=== PATIENT | female | born 1985 | race Caucasian/White ===

== ENCOUNTER → 2016-11-17 | Outpatient (CLI) | payer OTHER ==
[2015-12-26 06:20] VITALS: BP 111/60
--- NOTE | 2016-11-17 10:47 | RAD ---
Radionuclide gastric emptying study, 11/17/2016: History: Abdominal pain The study was performed utilizing a test meal radiolabeled with 2 mCi of technetium 99m sulfur colloid. The time to half emptying of the test meal from the patient's stomach was estimated at 191 minutes. A normal T1/2 is 60 minutes +/- 30 minutes. IMPRESSION: Moderately delayed gastric emptying
== END | disposition home or self-care (01) ==
LOC: NM 07:32
PROVIDERS: ATTEND Internal Medicine Gastroenterology
DX: R10.13 Epigastric pain (principal)
CPT/HCPCS: 78264; A9541

== ENCOUNTER 2016-11-27 15:14 | Emergency (ER) | payer OTHER ==
[~2016-11-27] VITALS: Ht 160 cm; Wt 87.2 kg
--- NOTE | 2016-11-27 16:04 | ED.ADGEN ---
Past History Past Medical History: Diabetes Past Surgical History: No Surgical History Alcohol Use: None Drug Use: None Adult General HPI HPI Patient is a 31-year-old female presents emergency department complaining of epigastric pain as well as nausea and vomiting. Patient is under the care of Dr. Wheeler. She had a recent scope and diagnosis of gastroparesis. It sounds like she is also being treated for H. pylori if she is taking erythromycin for a "infection." Today, she had some nausea and vomiting and called his office and she was instructed to come to the emergency department. None of her symptoms today are new for her. Review of Systems Review of Systems Constitutional: Denies fever or chills [] Eyes: Denies change in visual acuity, redness, or eye pain [] HENT: Denies nasal congestion or sore throat [] Respiratory: Denies cough or shortness of breath [] Cardiovascular: No additional information not addressed in HPI [] GI: Denies abdominal pain, nausea, vomiting, bloody stools or diarrhea [] : Denies dysuria or hematuria [] Musculoskeletal: Denies back pain or joint pain [] Integument: Denies rash or skin lesions [] Neurologic: Denies headache, focal weakness or sensory changes [] Endocrine: Denies polyuria or polydipsia [] Current Medications Current Medications Current Medications Medications (Trade) Dose Ordered Sig/[facility] Start Time Stop Time Status Last Admin Dose Admin Metoclopramide HCl (Reglan) 10 mg 1X ONCE 11/27/16 16:30 11/27/16 16:31 DC 11/27/16 16:22 10 MG Allergies Allergies Allergies Coded Allergies Type Severity Reaction Last Updated Verified No Known Drug Allergies 12/26/15 No Physical Exam Physical Exam Constitutional: Well developed, well nourished, no acute distress, non-toxic appearance. [] HENT: Normocephalic, atraumatic, bilateral external ears normal, oropharynx moist, no oral exudates, nose normal. [] Eyes: PERRLA, EOMI, conjunctiva normal, no discharge. [] Neck: Normal range of motion, no tenderness, supple, no stridor. [] Cardiovascular:Heart rate regular rhythm, no murmur [] Lungs & Thorax: Bilateral breath sounds clear to auscultation [] Abdomen: Bowel sounds normal, soft, epigastric tenderness to palpation without peritoneal signs., no masses, no pulsatile masses. [] Skin: Warm, dry, no erythema, no rash. [] Extremities: No tenderness, no cyanosis, no clubbing, ROM intact, no edema. [] Neurologic: Alert and oriented X 3, normal motor function, normal sensory function, no focal deficits noted. [] Psychologic: Affect normal, judgement normal, mood normal. [] Current Patient Data Vital Signs Vital Signs Date Time Temp Pulse Resp B/P Pulse Ox O2 Delivery O2 Flow Rate FiO2 11/27/16 15:20 98.7 88 18 98 Room Air EKG EKG [] Radiology/Procedures Radiology/Procedures [] Course & Med Decision Making Course & Med Decision Making Pertinent Labs and Imaging studies reviewed. (See chart for details) Given a dose of Reglan here as well as a prescription for the same. [] Final Impression Final Impression Gastroparesis [] Problems: Dragon Disclaimer Dragon Disclaimer This electronic medical record was generated, in whole or in part, using a voice recognition dictation system. STEPHANIE MACK MD Nov 27, 2016 16:04
[2016-11-27] MEDS ORDERED: METO10TA81 PO (16:15)
[2016-11-27] MEDS ORDERED: METOCLOPRAMIDE HCL 10 MG/2 ML VIAL. IM ONE (16:30)
[2016-11-27 17:00] VITALS: BP 124/69
== END 2016-11-27 17:00 | disposition home or self-care (01) ==
LOC: ER 15:14
DX: K31.84 Gastroparesis (principal); E11.9 Type 2 diabetes mellitus without complications
CPT/HCPCS: 96372; 99283; J2765

== ENCOUNTER 2016-12-28 10:50 | Emergency (ER) | payer OTHER ==
[~2016-12-28] VITALS: Ht 160 cm; Wt 101.6 kg
[~2016-12-28 10:50] MED LIST: METO10TA81 PO
--- NOTE | 2016-12-28 11:38 | RAD ---
Indication dizziness. Protocol study. A single view of the chest was obtained. No prior imaging of the chest is available. The heart and pulmonary vessels appear normal lungs appear clear. There is no pleural fluid or pneumothorax and the bony structures appear grossly intact. IMPRESSION: No acute or focal process is seen in the chest
[2016-12-28 11:41] LABS: BASO # 0.1 x10^3/uL (0.0-0.2); BASO % 1 % (0-3); EOS # 0.1 x10^3/uL (0.0-0.7); EOS % 2 % (0-3); HEMATOCRIT 44.3 % (36.0-47.0); LYMPH # 2.3 x10^3/uL (1.0-4.8); LYMPH % 33 % (24-48); MEAN CORPUSCULAR HEMOGLOBIN 31 pg (25-35); MEAN CORPUSCULAR HGB CONC 34 g/dL (31-37); MEAN CORPUSCULAR VOLUME 91 fL (79-100); MONO # 0.4 x10^3/uL (0.0-1.1); MONO % 6 % (0-9); NEUT % 58 % (31-73); PLATELET COUNT 269 x10^3/uL (140-400); RED BLOOD COUNT 4.87 x10^6/uL (3.50-5.40); RED CELL DISTRIBUTION WIDTH 12.9 % (11.5-14.5); WHITE BLOOD COUNT 6.9 x10^3/uL (4.0-11.0)
--- NOTE | 2016-12-28 11:43 | EKG ---
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
[2016-12-28 11:49] LABS: AMPHETAMINE/METHAMPHETAMINE NEG (NEG); BARBITURATES NEG (NEG); BENZODIAZEPINES NEG (NEG); CANNABINOIDS NEG (NEG); COCAINE NEG (NEG); METHADONE NEG (NEG); OPIATES NEG (NEG); PHENCYCLIDINE NEG (NEG)
[2016-12-28 11:52] LABS: BACTERIA,URINE FEW /HPF (0-FEW); BILIRUBIN,URINE NEG (NEG); CLARITY,URINE CLEAR; COLOR,URINE YELLOW; GLUCOSE,URINE NEG (NEG); NITRITE,URINE NEG (NEG); SQUAMOUS EPITHELIAL CELL,UR FEW /LPF; UROBILINOGEN,URINE 0.2 mg/dL (0.2 mg/dL)
[2016-12-28 11:54] LABS: ALBUMIN 3.9 g/dL (3.4-5.0); CALCIUM 9.2 mg/dL (8.5-10.1); CREATININE 0.8 mg/dL (0.6-1.0); DIRECT BILIRUBIN 0.1 mg/dL (0.0-0.2); GFR 83.7; MAGNESIUM 2.1 mg/dL (1.8-2.4); POTASSIUM 4.4 mmol/L (3.5-5.1); TOTAL BILIRUBIN 0.3 mg/dL (0.2-1.0); TOTAL PROTEIN 7.9 g/dL (6.4-8.2)
--- NOTE | 2016-12-28 12:17 | ED.ADGEN ---
Past History Past Medical History: Diabetes, Other Past Surgical History: No Surgical History Alcohol Use: None Drug Use: None Adult General Chief Complaint Chief Complaint Dizziness HPI HPI Patient is a 31-year-old year old female who presents with fifth dizzy and feeling like she is going to pass out at times. She states she hasn't but she sometimes sees spots such she might. She states the symptoms started last night. She denies any vertigo type symptoms. She feels like intermittently she feels like she'll pass out she started seeing some spots and they resolve. She has not passed out. She denies any chest pain, shortness of breath, nausea vomiting diarrhea fevers or chills. She states that she feels very foggy with her mind, she denies any focal neurological changes or weaknesses. She states she feels "like I am stoned". Review of Systems Review of Systems Constitutional: Denies fever or chills [] Eyes: Denies change in visual acuity, redness, or eye pain [] HENT: Denies nasal congestion or sore throat [] Respiratory: Denies cough or shortness of breath [] Cardiovascular: No additional information not addressed in HPI [] GI: Denies abdominal pain, nausea, vomiting, bloody stools or diarrhea [] : Denies dysuria or hematuria [] Musculoskeletal: Denies back pain or joint pain [] Integument: Denies rash or skin lesions [] Neurologic: Denies headache, focal weakness or sensory changes [] Endocrine: Denies polyuria or polydipsia [] Current Medications Current Medications Current Medications Medications (Trade) Dose Ordered Sig/[facility] Start Time Stop Time Status Last Admin Dose Admin Acetaminophen (Tylenol) 1,000 mg 1X ONCE 12/28/16 14:10 12/28/16 14:11 DC 12/28/16 14:10 1,000 MG Sodium Chloride (Iv Sodium Chloride 0.9% 1,000ml) 1,000 ml @ 1,000 mls/hr 1X ONCE 12/28/16 12:30 12/28/16 13:29 DC 12/28/16 12:30 1,000 MLS/HR Allergies Allergies Allergies Coded Allergies Type Severity Reaction Last Updated Verified No Known Drug Allergies 12/26/15 No Physical Exam Physical Exam Constitutional: Well developed, well nourished, no acute distress, non-toxic appearance. [] HENT: Normocephalic, atraumatic, bilateral external ears normal, oropharynx moist, no oral exudates, nose normal. [] Eyes: PERRLA, EOMI, conjunctiva normal, no discharge. [] Neck: Normal range of motion, no tenderness, supple, no stridor. [] Cardiovascular:Heart rate regular rhythm, no murmur [] Lungs & Thorax: Bilateral breath sounds clear to auscultation [] Abdomen: Bowel sounds normal, soft, no tenderness, no masses, no pulsatile masses. [] Skin: Warm, dry, no erythema, no rash. [] Back: No tenderness, no CVA tenderness. [] Extremities: No tenderness, no cyanosis, no clubbing, ROM intact, no edema. [] Neurologic: Alert and oriented X 3, normal motor function, normal sensory function, no focal deficits noted. [] Psychologic: Affect normal, judgement normal, mood normal. [] Current Patient Data Vital Signs Vital Signs Date Time Temp Pulse Resp B/P Pulse Ox O2 Delivery O2 Flow Rate FiO2 12/28/16 14:45 79 20 122/74 99 Room Air 12/28/16 10:50 98.3 Lab Results Laboratory Tests Test 12/28/16 11:20 12/28/16 11:25 12/28/16 11:31 12/28/16 14:15 Urine Collection Type Unknown Urine Color Yellow Urine Clarity Clear Urine pH 6.5 Urine Specific [place] 1.015 Urine Protein Neg (NEG-TRACE) Urine Glucose (UA) Negmg/dL (NEG) Urine Ketones (Stick) Negmg/dL (NEG) Urine Blood Neg (NEG) Urine Nitrite Neg (NEG) Urine Bilirubin Neg (NEG) Urine Urobilinogen Dipstick 0.2mg/dL (0.2 mg/dL) Urine Leukocyte Esterase Neg (NEG) Urine RBC 1-2/HPF (0-2) Urine WBC 1-4/HPF (0-4) Urine Squamous Epithelial Cells Few/LPF Urine Bacteria Few/HPF (0-FEW) Urine Mucus Mod/LPF Urine Opiates Screen Neg (NEG) Urine Methadone Screen Neg (NEG) Urine Barbiturates Neg (NEG) Urine Phencyclidine Screen Neg (NEG) Urine Amphetamine/Methamphetamine Neg (NEG) Urine Benzodiazepines Screen Neg (NEG) Urine Cocaine Screen Neg (NEG) Urine Cannabinoids Screen Neg (NEG) Urine Ethyl Alcohol Neg (NEG) White Blood Count 6.9x10^3/uL (4.0-11.0) Red Blood Count 4.87x10^6/uL (3.50-5.40) Hemoglobin 15.0g/dL (12.0-15.5) Hematocrit 44.3% (36.0-47.0) Mean Corpuscular Volume 91fL (79-100) Mean Corpuscular Hemoglobin 31pg (25-35) Mean Corpuscular Hemoglobin Concent 34g/dL (31-37) Red Cell Distribution Width 12.9% (11.5-14.5) Platelet Count 269x10^3/uL (140-400) Neutrophils (%) (Auto) 58% (31-73) Lymphocytes (%) (Auto) 33% (24-48) Monocytes (%) (Auto) 6% (0-9) Eosinophils (%) (Auto) 2% (0-3) Basophils (%) (Auto) 1% (0-3) Neutrophils # (Auto) 4.0x10^3uL (1.8-7.7) Lymphocytes # (Auto) 2.3x10^3/uL (1.0-4.8) Monocytes # (Auto) 0.4x10^3/uL (0.0-1.1) Eosinophils # (Auto) 0.1x10^3/uL (0.0-0.7) Basophils # (Auto) 0.1x10^3/uL (0.0-0.2) Prothrombin Time 9.6SEC (9.4-11.4) Prothrombin Time INR 0.9 (0.9-1.1) PTT 26SEC (23-33) Sodium Level 141mmol/L (136-145) Potassium Level 4.4mmol/L (3.5-5.1) Chloride Level 102mmol/L (98-107) Carbon Dioxide Level 30mmol/L (21-32) Anion Gap 9 (6-14) Blood Urea Nitrogen 10mg/dL (7-20) Creatinine 0.8mg/dL (0.6-1.0) Estimated GFR (Cockcroft-Gault) 83.7 Glucose Level 104mg/dL (70-99) H Calcium Level 9.2mg/dL (8.5-10.1) Magnesium Level 2.1mg/dL (1.8-2.4) Total Bilirubin 0.3mg/dL (0.2-1.0) Direct Bilirubin 0.1mg/dL (0.0-0.2) Aspartate Amino Transferase (AST) 12U/L (15-37) L Alanine Aminotransferase (ALT) 21U/L (14-59) Alkaline Phosphatase 73U/L (46-116) Creatine Kinase 79U/L (26-192) 62U/L (26-192) Troponin I Quantitative < 0.017ng/mL (0-0.055) < 0.017ng/mL (0-0.055) Total Protein 7.9g/dL (6.4-8.2) Albumin 3.9g/dL (3.4-5.0) Lipase 86U/L (73-393) Thyroid Stimulating Hormone (TSH) 2.052uIU/mL (0.358-3.740) POC Urine HCG, Qualitative hcg negative (Negative) Creatine Kinase MB (Mass) 0.5ng/mL (0.0-3.6) Creatine Kinase MB Relative Index 0.8% (0-4) EKG EKG EKG shows normal sinus rhythm with a rate of [address] elevations or T-wave inversions noted in leads 3, aVF, QTC 395 ms, as interpreted by me. Radiology/Procedures Radiology/[place] [address] IMAGING REPORT Signed PATIENT: ALVIN DO ACCOUNT: [id number] : 1985 LOCATION: ER AGE: 31 SEX: F EXAM STATUS: REG ER ORD. PHYSICIAN: ROXY ABREU MD REASON: DIZZY PROCEDURE: PORTABLE CHEST 1V Indication dizziness. Protocol study. A single view of the chest was obtained. No prior imaging of the chest is available. The heart and pulmonary vessels appear normal lungs appear clear. There is no pleural fluid or pneumothorax and the bony structures appear grossly intact. IMPRESSION: No acute or focal process is seen in the chest DICTATED AND SIGNED BY: PRASANTH GUEVARA MD DATE: 12/28/16 1134 CC: HORTENCIA BURNETTE MD; ROXY ABREU MD ~ Course & Med Decision Making Course & Med Decision Making Pertinent Labs and Imaging studies reviewed. (See chart for details) Labs, chest x-ray nonacute. Patient was able to ambulate without any difficulties. Her neuro exam is completely intact. She was given a liter fluids and being discharged home. He does have T-wave inversions in her EKG I did repeat a troponin 2 which are both negative. She has a follow-up appointment tomorrow with her primary care physician. She is instructed to start taking multivitamins and follow-up with her primary care physician. Return precautions given focal neurological deficit, fevers, confusion or other concerns. Final Impression Final Impression Dizziness Problems: Dragon Disclaimer Dragon Disclaimer This electronic medical record was generated, in whole or in part, using a voice recognition dictation system. ROXY ABREU MD December 28, 2016 12:17
[2016-12-28] MEDS ORDERED: IV NORMAL SALINE 1,000ML 1,000 ML IV ONE (12:30)
[2016-12-28] MEDS ORDERED: ACETAMINOPHEN 500 MG TABLET PO ONE (14:10)
[2016-12-28 14:45] VITALS: BP 122/74
== END 2016-12-28 15:10 | disposition home or self-care (01) ==
LOC: ER 10:50
DX: R42 Dizziness and giddiness (principal); E11.9 Type 2 diabetes mellitus without complications
CPT/HCPCS: 36415; 71010; 80048; 80076; 80305; 81001; 81025; 82550; 82553; 83690; 83735; 84443; 84484; 84703; 85027; 85610; 85730; 93005; 96360; 96361; G0481; 99285-25; J7030

== ENCOUNTER 2017-03-11 19:58 | Emergency (ER) | payer OTHER ==
[~2017-03-11] VITALS: Ht 160 cm; Wt 102.2 kg
--- NOTE | 2017-03-11 20:05 | PHYS DOC ---
General Chief Complaint: ANKLE PROBLEM Stated Complaint: RT ANKLE INJURY Time Seen by MD: 20:04 Source: patient Exam Limitations: no limitations Problems: History of Present Illness Initial Comments Patient is a 31-year-old female who comes to the ED complaining of right ankle pain. Patient states earlier today she was stepping off a curb and rolled her right ankle in an inversion mechanism. She denies falling or other injury but does complain of severe lateral right ankle pain and swelling. She says she did feel a pop, pain described as sharp and throbbing and severe with movement mild to moderate at rest. No pre-arrival treatment numbness tingling weakness or radiating symptoms. Patient has a prior fracture to this ankle. Onset: this evening Severity: moderate Pain/Injury Location: right ankle Method of Injury: twisted Modifying Factors: worse with jarring, worse with movement, improves with rest Allergies: Coded Allergies: No Known Drug Allergies (Unverified , 12/26/15) Past Medical History Medical History: other (GERD) Surgical History: appendectomy Social History Smoker: non-smoker Alcohol: none Drugs: none Review of Systems Constitutional: denies chills, denies fever Respiratory: denies cough, denies shortness of breath Cardiovascular: denies chest pain, denies palpitations Gastrointestinal: denies diarrhea (course in the brace), denies nausea, denies vomiting Genitourinary: denies dysuria, denies frequency, denies hematuria Musculoskeletal: see HPI ( no) Psychiatric/Neurological: see HPI Physical Exam General Appearance: mild distress, obese Neck: full range of motion, supple Cardiovascular/Respiratory: normal peripheral pulses, no respiratory distress Back: no CVA tenderness, no vertebral tenderness Ankles: left ankle non-tender, left ankle normal inspection, left ankle normal range of motion, left ankle no evidence of injury, right ankle limited range of motion, right ankle other (moderate right ankle effusion with concentration and tenderness at the anterior talofibular ligament and posterior calcaneofibular ligaments, drawer test is negative there is no tenderness at the proximal fifth metatarsal or the proximal fibula, there is no palpable deformity ligaments and tendons appear to be intact.) Feet: bilateral foot non-tender, bilateral foot normal inspection, bilateral foot normal range of motion, bilateral foot no evidence of injury Neurologic/Tendon: normal sensation, normal motor functions, normal tendon functions, responds to pain, no evidence tendon injury Psychiatric: alert, oriented x 3 Skin: normal color, warm/dry Orders, Labs, Meds Right ankle: No acute osseous abnormality. Interpreted by Dr. Cortez. Neurovascularly intact after air splint placed. Departure Time of Disposition: 20:42 Disposition: 01 HOME, SELF-CARE Diagnosis: right ankle sprain, abrasion Condition: GOOD Patient Instructions: Crutch Use, [id number], RICE - Routine Care for Injuries, [id number] Additional Instructions: Keep abrasions clean and dry. Wear the velcro ankle splint as needed. RICE, see handout. Use crutches as needed. OTC ibuprofen for baseline discomfort. A tylenol #3 start pack was sent home with you. Take 1-2 every 6 hours for severe pain. Rx: norco 5mg #10 Follow up with your doctor Wednesday for recheck. Return to ED with new or changing symptoms. SOPHIE CORTEZ DO Mar 11, 2017 20:05
[2017-03-11 20:09] VITALS: BP 116/59
[2017-03-11] MEDS ORDERED: ACETAMINOPHEN/CODEINE 300/30MG 4TABLET STARTPACK. PO ONE (21:00)
[2017-03-11] MEDS ORDERED: HYDROcodone/APAP 7.5/325MG 1 TAB TABLET PO ONE (21:00)
--- NOTE | 2017-03-12 09:02 | RAD ---
Right ankle, 3 views, 03/11/2017: History: Ankle pain, injury No fracture or dislocation is identified. There is moderate diffuse soft tissue swelling about the ankle. IMPRESSION: No acute bony abnormality is detected.
== END 2017-03-11 21:20 | disposition home or self-care (01) ==
LOC: ER 19:58
DX: S93.401A Sprain of unspecified ligament of right ankle, initial encounter (principal); K21.9 Gastro-esophageal reflux disease without esophagitis; X50.9XXA Other and unspecified overexertion or strenuous movements or postures, initial encounter; Y93.89 Activity, other specified; Y99.8 Other external cause status; Y92.89 Other specified places as the place of occurrence of the external cause
CPT/HCPCS: 29125; 29515; 73610; 99284-25

== ENCOUNTER 2017-03-22 13:43 | Emergency (ER) | payer OTHER ==
[2017-03-22] MEDS ORDERED: IV NORMAL SALINE 1,000ML 1,000 ML IV SCH (14:24)
[2017-03-22 14:45] LABS: BASO # 0.1 x10^3/uL (0.0-0.2); BASO % 1 % (0-3); EOS # 0.2 x10^3/uL (0.0-0.7); EOS % 2 % (0-3); HEMATOCRIT 40.8 % (36.0-47.0); HEMOGLOBIN 14.5 g/dL (12.0-15.5); LYMPH # 2.8 x10^3/uL (1.0-4.8); LYMPH % 32 % (24-48); MEAN CORPUSCULAR HEMOGLOBIN 32 pg (25-35); MEAN CORPUSCULAR HGB CONC 36 g/dL (31-37); MEAN CORPUSCULAR VOLUME 89 fL (79-100); MONO # 0.6 x10^3/uL (0.0-1.1); MONO % 7 % (0-9); NEUT # 5.1 x10^3uL (1.8-7.7); NEUT % 58 % (31-73); PLATELET COUNT 283 x10^3/uL (140-400); RED BLOOD COUNT 4.58 x10^6/uL (3.50-5.40); WHITE BLOOD COUNT 8.8 x10^3/uL (4.0-11.0)
--- NOTE | 2017-03-22 14:45 | PHYS DOC ---
General Chief Complaint: HEADACHE Stated Complaint: DIZZY/HEADACHE Time Seen by MD: 14:24 Source: patient Exam Limitations: no limitations Problems: History of Present Illness Initial Comments Patient is a 31-year-old female who comes to the ED complaining of migraine headache. Patient states that she takes Imitrex as needed for headaches, her headache started yesterday and Imitrex did not help. Today her headache is worse and she' s got some dizziness her symptoms are only present when she is sitting upright standing or walking symptoms do resolve quickly when she lays flat. Headache is described as global, throbbing/pounding resolved at rest while lying down worse with upright posture and activity. No head trauma no focal neurologic deficits. Symptoms are different than her usual migraine as they are global and one dose of Imitrex usually resolves her headache quickly. No rash neck stiffness fever. Timing/Duration: 24 hours Severity: moderate Modifying Factors: worse with movement, improves with rest Associated Symptoms: headaches, other Allergies: Coded Allergies: No Known Drug Allergies (Unverified , 12/26/15) Past Medical History Medical History: other (migraines, gastroparesis) Surgical History: appendectomy Social History Smoker: non-smoker Alcohol: none Drugs: none Review of Systems Constitutional: denies chills, denies diaphoresis, denies fever, denies malaise EENTM: denies eye pain, denies blurred vision, denies ear pain, denies nose pain, denies throat pain Respiratory: denies cough, denies shortness of breath, denies wheezing Cardiovascular: denies chest pain (sore), denies palpitations, denies syncope Gastrointestinal: denies abdominal pain, denies diarrhea, denies nausea, denies vomiting (status.Not nontypical to the urgent this afternoon) Genitourinary: denies discharge, denies frequency, denies hematuria Musculoskeletal: denies back pain, denies joint swelling, denies neck pain Skin: denies dryness, denies rash Psychiatric/Neurological: see HPI, headache, denies numbness, denies paresthesia, denies pre-existing deficit, denies weakness Hematologic/Lymphatic: denies blood clots, denies easy bleeding, denies easy bruising Physical Exam General Appearance: WD/WN, no apparent distress Eyes: bilateral eye normal inspection, bilateral eye PERRL, bilateral eye EOMI Ear, Nose, Throat: hearing grossly normal, normal ENT inspection (dry mucous membranes), normal pharynx Neck: non-tender, supple Respiratory: normal breath sounds, no respiratory distress Cardiovascular: normal peripheral pulses, regular rate, rhythm Gastrointestinal: non tender, soft Back: no CVA tenderness, no vertebral tenderness Extremities: non-tender, normal inspection 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 She is more comfortable now she sitting up with her eyes open. She states her symptoms have resolved completely with IV fluids and is ready for discharge. Urine has not been collected and sent yet and I will DC that order. Her CBC and chemistry values were within normal limits. She'll be discharged home with instructions to hydrate orally. Departure Time of Disposition: 15:16 Disposition: 01 HOME, SELF-CARE Diagnosis: hypovolemia, headache Condition: IMPROVED Patient Instructions: Dehydration, Adult, [id number] Additional Instructions: Rest, no strenuous activity. Aggressive hydration with Gatorade and water. Follow-up with your doctor for recheck next week. Return to the ED with new or changing symptoms. SOPHIE MCLAUGHLIN DO Mar 22, 2017 14:45
[2017-03-22 14:52] LABS: CREATININE 0.9 mg/dL (0.6-1.0); POTASSIUM 3.9 mmol/L (3.5-5.1)
[2017-03-22] MEDS ORDERED: KETOROLAC 30 MG/ML VIAL. IV ONE (15:00)
[2017-03-22] MEDS ORDERED: ONDANSETRON PF 4 MG/2 ML VIAL. IV ONE (15:00)
[2017-03-22 15:07] VITALS: BP 140/77
== END 2017-03-22 15:30 | disposition home or self-care (01) ==
LOC: ER 13:43
DX: R51 Headache (principal); E86.1 Hypovolemia; G43.909 Migraine, unspecified, not intractable, without status migrainosus
CPT/HCPCS: 36415; 80048; 85027; 96361; 96374; 96375; 99284; J1885; J2405; J7030

== ENCOUNTER → 2017-04-14 | Outpatient (CLI) | payer OTHER ==
[2017-03-22 15:07] VITALS: BP 140/77
--- NOTE | 2017-04-14 11:39 | RAD ---
CT abdomen/pelvis without contrast 04/14/2017 1122 hours Indication: Left upper quadrant abdominal pain Comparison: CT abdomen/pelvis 12/26/2015 Technique: Multiple axial CT images of the abdomen and pelvis were obtained without intravenous contrast. Coronal and sagittal reformats are provided. Findings: The lung bases are clear. Heart size is within normal limits. Mild diffuse hypoattenuation of the hepatic parenchyma suggestive of hepatic steatosis. Spleen, bilateral adrenal glands, and pancreas are within normal limits. Gallbladder is present without adjacent inflammatory changes. Kidneys appear symmetric in size. No renal calculi. No hydronephrosis. No contour deforming renal mass. No calculi are identified along the course of the ureters and urinary bladder. The abdominal aorta is normal in course and caliber. There are no enlarged lymph nodes within the abdomen or pelvis. There is no free intraperitoneal air. There is no free fluid within the abdomen or pelvis. There are no dilated loops of small or large bowel. The appendix is not visualized. No evidence for bowel obstruction. Bladder is within normal limits. No suspicious adnexal masses are identified. Uterus is within normal limits by CT. No suspicious osseous lesions are identified. Impression: No acute process is identified within the abdomen or pelvis. Specifically, no renal calculi or calculi along the ureters and urinary bladder. No hydronephrosis. PQRS Compliance Statement: One or more of the following individualized dose reduction techniques were utilized for this examination: 1. Automated exposure control 2. Adjustment of the mA and/or kV according to patient size 3. Use of iterative reconstruction technique
== END | disposition home or self-care (01) ==
LOC: CT 11:18
PROVIDERS: ATTEND Family Medicine
DX: K31.84 Gastroparesis (principal); R63.5 Abnormal weight gain; R20.2 Paresthesia of skin
CPT/HCPCS: 74176

== ENCOUNTER 2017-06-12 04:23 | Emergency (ER) | payer OTHER ==
[~2017-06-12] VITALS: Ht 160 cm; Wt 104.3 kg
[2017-06-12 04:38] VITALS: BP 142/84
[2017-06-12] MEDS ORDERED: KETOROLAC 60 MG/2 ML VIAL. IM ONE (04:45)
[2017-06-12] MEDS ORDERED: HYDR-2758 PO (04:49)
[2017-06-12] MEDS ORDERED: NAPR275T59 PO (04:49)
--- NOTE | 2017-06-12 04:49 | PHYS DOC ---
Past History Past Medical History: Anxiety, Depression, Migraines, Other Past Surgical History: Appendectomy Alcohol Use: None Drug Use: None Adult General Chief Complaint Chief Complaint: UPPER EXTREMITY PAIN HPI HPI Patient is a pleasant 32-year-old female who was recently diagnosed with fibromyalgia by her primary care doctor and started on gabapentin within the last 4 weeks. 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 She describes some paresthesias over the entire distal arm. She describes no weakness. The pain is described as throbbing and aching with some radiation to the shoulders. It is exacerbated by activities. Quickly wakes her up at night. There is no shoulder pain or no neck pain. She denies any trauma to her upper extremity's or neck. She is tried Tylenol with limited limited success Review of Systems Review of Systems Constitutional: Denies fever or chills [] Eyes: Denies change in visual acuity, redness, or eye pain [] HENT: Denies nasal congestion or sore throat [] Respiratory: Denies cough or shortness of breath [] Cardiovascular: No additional information not addressed in HPI [] GI: Denies abdominal pain, nausea, vomiting, bloody stools or diarrhea [] : Denies dysuria or hematuria [] Musculoskeletal: Her main complaint is upper arm extremity pain bilaterally and paresthesias Integument: Denies rash or skin lesions [] Neurologic: Denies headache, focal weakness she does describe some sensation changes in her upper arms and hands bilaterally[] Endocrine: Denies polyuria or polydipsia [] Allergies Allergies Allergies Coded Allergies Type Severity Reaction Last Updated Verified No Known Drug Allergies 12/26/15 No Physical Exam Physical Exam Vital signs recorded on the chart patient noted to be mildly hypertensive. Constitutional: Well developed, well nourished, no acute distress, non-toxic appearance. [] HENT: Normocephalic, atraumatic, bilateral external ears normal, oropharynx moist, no oral exudates, nose normal. [] Eyes: PERRLA, EOMI, conjunctiva normal, no discharge. [] Neck: Normal range of motion, no tenderness, supple, no stridor. Negative Spurling test no midline tenderness palpation.[] Cardiovascular:Heart rate regular rhythm, no murmur [] Lungs & Thorax: Bilateral breath sounds clear to auscultation [] Abdomen: Bowel sounds normal, soft, no tenderness, no masses, no pulsatile masses. [] Skin: Warm, dry, no erythema, no rash. [] Back: No tenderness, no CVA tenderness. [] Extremities: Patient's tenderness to palpation over the carpal tunnel areas on each wrist. She has a positive Tinel sign positive positive Phalen's maneuver Neurologic: Alert and oriented X 3, normal motor function, normal sensory function, patient has slight sensory decreased in the hands bilaterally.. [] Psychologic: Affect normal, judgement normal, mood normal. [] Current Patient Data Vital Signs Vital Signs Date Time Temp Pulse Resp B/P (MAP) Pulse Ox O2 Delivery O2 Flow Rate FiO2 06/12/17 04:38 97.8 83 20 142/84 (103) 95 Room Air EKG EKG [] Radiology/Procedures Radiology/Procedures [] Course & Med Decision Making Course & Med Decision Making Pertinent Labs and Imaging studies reviewed. 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 She has positive Tinel's, positive Phalen's sign on examination. With pain. Paresthesias and no evidence of weakness and disposition of the median ulnar and radial nerves of the arms bilaterally. Patient has negative Spurling's test evidence of cervical radiculopathy. I advised the patient to take pain medications used bilateral wrist splints and follow-up with a neurologist locally for physician for nerve conduction studies. [] Dragon Disclaimer Dragon Disclaimer This chart was dictated in whole or in part using Voice Recognition software in a busy, high-work load, and often noisy Emergency Department environment. It may contain unintended and wholly unrecognized errors or omissions. Departure Departure: Impression: Primary Impression: Paresthesias Additional Impression: Carpal tunnel syndrome on both sides Disposition: 01 HOME, SELF-CARE Condition: STABLE Referrals: HORTENCIA BURNETTE MD (PCP) KELSI PALOMARES MD Patient Instructions: Carpal Tunnel Syndrome Additional Instructions: My discharge plan Follow up: In addition patient is asked to followup with their primary doctor, within a week for followup examination and to address patient's ongoing medical conditions. Patient is advised that in the Emergency Department primary complaints are addressed and only in light of known signs and symptoms. Patient should return immediately to the emergency department if new signs and symptoms develop or patient's condition worsens in any way. At time of discharge patient was in stable condition and had verbalized understanding of the discharge instructions. I would advise that you follow-up with a neurologist for continued. Evaluation of your CTS syndrome which will likely require nerve conduction studies and possibly referral to orthopedics. Scripts Hydrocodone Bit/Acetaminophen (HYDROCODONE-APAP 5-325 ) 1 Each Tablet 1 TAB PO PRN Q6HRS Y for PAIN for 5 Days, #12 TAB 0 Refills Prov: TULIO ASENCIO MD 06/12/17 Naproxen Sodium (NAPROXEN SODIUM) 275 Mg Tablet 275 MG PO BID for 7 Days, #14 TAB Prov: TULIO ASENCIO MD 06/12/17 Problem Qualifiers TULIO ASENCIO MD Jun 12, 2017 04:49
[2017-06-12] MEDS ORDERED: HYDROcodone/APAP 5/325MG 1 TAB TABLET PO ONE (05:00)
== END 2017-06-12 05:00 | disposition home or self-care (01) ==
LOC: ER 04:23
DX: R20.2 Paresthesia of skin (principal); G56.03 Carpal tunnel syndrome, bilateral upper limbs; G43.909 Migraine, unspecified, not intractable, without status migrainosus
CPT/HCPCS: 29125; 96372; 99283; J1885

== ENCOUNTER 2017-12-11 20:51 | Emergency (ER) | payer SELFPAY ==
[~2017-12-11] VITALS: Ht 160 cm; Wt 95.3 kg
[~2017-12-11 20:51] MED LIST changes: +HYDR-2758 PO; +NAPR275T59 PO
--- NOTE | 2017-12-11 20:54 | ED.ADGEN ---
Past History Past Medical History: Anxiety, Depression, Migraines, Other Past Surgical History: Appendectomy Alcohol Use: None Drug Use: None Adult General Chief Complaint Chief Complaint " I having one the worse headaches...".. " I get migraines.. this one been for last two days.. just not better today... " HPI HPI Patient is a 32 year old female who presents with above hx and complaints exacerbation of her migraine headache. Pt. has nausea, photophobia, and frontal scalp tenderness. No hx of travel, trauma or specific ill contacts. No hx of fever . No hx of IV drug use. No hx of immunosuppression. Pt. follows with Dr. Rendon. Hx of nausea. Review of Systems Review of Systems Constitutional: Denies fever or chills [] Eyes: Denies change in visual acuity, redness, or eye pain [] HENT: Denies nasal congestion or sore throat [] Respiratory: Denies cough or shortness of breath [] Cardiovascular: No additional information not addressed in HPI [] GI: Denies abdominal pain, vomiting, bloody stools or diarrhea []Complaints nausea. : Denies dysuria or hematuria [] Musculoskeletal: Denies back pain or joint pain [] Integument: Denies rash or skin lesions [] Neurologic: Complaints of migraine headache, focal weakness or sensory changes [] Endocrine: Denies polyuria or polydipsia [] All other systems were reviewed and found to be within normal limits, except as documented in this note. Family History Family History Non-contributory Current Medications Current Medications Current Medications Medications (Trade) Dose Ordered Sig/Magnolia Start Time Stop Time Status Last Admin Dose Admin Diphenhydramine HCl (Benadryl) 50 mg 1X ONCE 12/11/17 22:00 12/11/17 22:01 DC 12/11/17 21:48 50 MG Ketorolac Tromethamine (Toradol) 30 mg 1X ONCE 12/11/17 23:00 12/11/17 23:01 DC 12/11/17 22:52 30 MG Lactated Ringer's 1,000 ml @ 1,000 mls/hr 1X ONCE 12/11/17 22:00 12/11/17 23:00 DC 12/11/17 21:52 1,000 MLS/HR Oxycodone/ Acetaminophen (Percocet 5/325) 2 tab 1X ONCE 12/11/17 23:30 12/11/17 23:31 DC 12/11/17 23:36 2 TAB Promethazine HCl (Phenergan Im) 25 mg 1X ONCE 12/11/17 22:00 12/11/17 22:01 DC 12/11/17 21:53 25 MG Sodium Chloride 50 ml @ As Directed STK-MED ONCE 12/11/17 21:36 12/11/17 21:37 DC Sumatriptan Succinate (Imitrex) 6 mg 1X ONCE 12/11/17 22:00 12/11/17 22:01 DC 12/11/17 21:53 6 MG Valproic Acid (Depacon) 500 mg STK-MED ONCE 12/11/17 21:37 12/11/17 21:38 DC Valproic Acid 500 mg/Sodium Chloride 55 ml @ 55 mls/hr 1X ONCE 12/11/17 22:00 12/11/17 23:00 DC 12/11/17 21:48 55 MLS/HR Allergies Allergies Allergies Coded Allergies Type Severity Reaction Last Updated Verified No Known Drug Allergies 12/26/15 No Physical Exam Physical Exam Constitutional: moderated distress, non-toxic appearance. [] HENT: Normocephalic, atraumatic, bilateral external ears normal, oropharynx moist, no oral exudates, nose normal. No temporal art. tenderness. Frontal scalp tenderness. Eyes: PERRLA, EOMI, conjunctiva normal, no discharge. [] Neck: Normal range of motion, no tenderness, supple, no stridor. [] Cardiovascular:Heart rate regular rhythm, no murmur [] Lungs & Thorax: Bilateral breath sounds clear to auscultation [] Abdomen: Bowel sounds normal, soft, no tenderness, no masses, no pulsatile masses. [] Obese. Old scar. Skin: Warm, dry, no erythema, no rash. [] Back: No tenderness, no CVA tenderness. [] Extremities: No tenderness, no cyanosis, no clubbing, ROM intact, no edema. [] Neurologic: Alert and oriented X 3, No gross motor function deficits, No gross sensory deficits, no gross focal deficits noted. []DTR + 2 patella and brachial Rt hand dominate. Psychologic: Affect anxious, judgement normal, mood normal. [] Current Patient Data Vital Signs Vital Signs Date Time Temp Pulse Resp B/P (MAP) Pulse Ox O2 Delivery O2 Flow Rate FiO2 12/11/17 23:30 98.1 84 20 131/80 (97) 95 Room Air Lab Results Laboratory Tests Test 12/11/17 21:21 White Blood Count 12.7 x10^3/uL (4.0-11.0) H Red Blood Count 4.94 x10^6/uL (3.50-5.40) Hemoglobin 15.3 g/dL (12.0-15.5) Hematocrit 44.1 % (36.0-47.0) Mean Corpuscular Volume 89 fL (79-100) Mean Corpuscular Hemoglobin 31 pg (25-35) Mean Corpuscular Hemoglobin Concent 35 g/dL (31-37) Red Cell Distribution Width 13.3 % (11.5-14.5) Platelet Count 293 x10^3/uL (140-400) Neutrophils (%) (Auto) 81 % (31-73) H Lymphocytes (%) (Auto) 14 % (24-48) L Monocytes (%) (Auto) 4 % (0-9) Eosinophils (%) (Auto) 1 % (0-3) Basophils (%) (Auto) 0 % (0-3) Neutrophils # (Auto) 10.2 x10^3uL (1.8-7.7) H Lymphocytes # (Auto) 1.8 x10^3/uL (1.0-4.8) Monocytes # (Auto) 0.5 x10^3/uL (0.0-1.1) Eosinophils # (Auto) 0.1 x10^3/uL (0.0-0.7) Basophils # (Auto) 0.0 x10^3/uL (0.0-0.2) Erythrocyte Sedimentation Rate 40 (0-25) H Prothrombin Time 9.9 SEC (9.4-11.4) Prothrombin Time INR 1.0 (0.9-1.1) PTT 27 SEC (23-33) Sodium Level 140 mmol/L (136-145) Potassium Level 4.0 mmol/L (3.5-5.1) Chloride Level 102 mmol/L (98-107) Carbon Dioxide Level 28 mmol/L (21-32) Anion Gap 10 (6-14) Blood Urea Nitrogen 15 mg/dL (7-20) Creatinine 0.8 mg/dL (0.6-1.0) Estimated GFR (Cockcroft-Gault) 83.1 Glucose Level 98 mg/dL (70-99) Calcium Level 9.4 mg/dL (8.5-10.1) Magnesium Level 2.0 mg/dL (1.8-2.4) EKG EKG [] Radiology/Procedures Radiology/Procedures My interpretation of CT of head shows[]no shift,edema, mass, bleed or fx. Course & Med Decision Making Course & Med Decision Making Pertinent Labs and Imaging studies reviewed. (See chart for details) Pt. declines spinal tap at this time. Exhibit UCAR capacity. Pt. to take Imitrex 100mg. No more than 200 mg in 24 hrs. Zofran for nausea and vomiting. Must follow up with primary and neurology. At discharge pt pain free. Ambulatory with out problems. Pt. to return if any concerns. [] Final Impression Final Impression 1. Migraine[] 2. Elevation Sed. Rate 3. Leukocytosis 4. Viral Syndrome Problems: Dragon Disclaimer Dragon Disclaimer This electronic medical record was generated, in whole or in part, using a voice recognition dictation system. JONAH HARDY MD Dec 11, 2017 20:54
[2017-12-11] MEDS ORDERED: IV NORMAL SALINE 50ML 50 ML ONE (21:36)
[2017-12-11] MEDS ORDERED: VALPROATE SODIUM 500 MG/5 ML VIAL IV ONE (21:37)
[2017-12-11 21:47] LABS: BASO % 0 % (0-3); EOS # 0.1 x10^3/uL (0.0-0.7); EOS % 1 % (0-3); HEMATOCRIT 44.1 % (36.0-47.0); HEMOGLOBIN 15.3 g/dL (12.0-15.5); LYMPH # 1.8 x10^3/uL (1.0-4.8); LYMPH % 14 % (24-48); MEAN CORPUSCULAR HEMOGLOBIN 31 pg (25-35); MEAN CORPUSCULAR HGB CONC 35 g/dL (31-37); MEAN CORPUSCULAR VOLUME 89 fL (79-100); MONO # 0.5 x10^3/uL (0.0-1.1); MONO % 4 % (0-9); NEUT # 10.2 x10^3uL (1.8-7.7); NEUT % 81 % (31-73); PLATELET COUNT 293 x10^3/uL (140-400); RED BLOOD COUNT 4.94 x10^6/uL (3.50-5.40); RED CELL DISTRIBUTION WIDTH 13.3 % (11.5-14.5); WHITE BLOOD COUNT 12.7 x10^3/uL (4.0-11.0)
[2017-12-11 21:48] LABS: CALCIUM 9.4 mg/dL (8.5-10.1); CREATININE 0.8 mg/dL (0.6-1.0); GFR 83.1
--- NOTE | 2017-12-11 21:57 | RAD ---
EXAM: CT HEAD WITHOUT CONTRAST. HISTORY: Severe headache. TECHNIQUE: Computed tomography of the head was performed without intravenous contrast. COMPARISON: None. FINDINGS: There is no intracranial hemorrhage. Melo-white differentiation is preserved. The ventricles are normal in size and position. The visualized paranasal sinuses appear clear. The orbits are unremarkable. The temporal bones are unremarkable. The calvarium reveals no suspicious lesions. IMPRESSION: 1. No acute intracranial findings. *One or more of the following individualized dose reduction techniques were utilized for this examination: 1. Automated exposure control. 2. Adjustment of the mA and/or kV according to patient size. 3. Use of iterative reconstruction technique. Electronically signed by: Katey Joy MD (12/11/2017 9:54 PM) [facility]
[2017-12-11] MEDS ORDERED: SUMAtriptan. 6 MG/0.5 ML VIAL SQ ONE (22:00)
[2017-12-11] MEDS ORDERED: diphenhydrAMINE 50 MG/ML VIAL IV ONE (22:00)
[2017-12-11] MEDS ORDERED: PROMETHAZINE IM 25 MG/ML VIAL IM ONE (22:00)
[2017-12-11] MEDS ORDERED: VALPROATE SODIUM 500 MG in IV NORMAL SALINE 50ML 50 ML IV ONE (22:00)
[2017-12-11] MEDS ORDERED: IV RINGERS SOLUTION,LACTATED 1,000 ML IV ONE (22:00)
[2017-12-11 22:50] LABS: SEDIMENTATION RATE 40 (0-25)
[2017-12-11] MEDS ORDERED: KETOROLAC 30 MG/ML VIAL. IV ONE (23:00)
[2017-12-11 23:30] VITALS: BP 131/80
[2017-12-11] MEDS ORDERED: oxyCODONE/APAP 5/325 1 TAB TABLET PO ONE (23:30)
[2017-12-11] MEDS ORDERED: HYDR-79 PO (23:31)
[2017-12-11] MEDS ORDERED: ONDA8TAB12 PO (23:31)
[2017-12-11] MEDS ORDERED: SUMA100T3 PO (23:32)
== END 2017-12-11 23:40 | disposition home or self-care (01) ==
LOC: ER 20:51
DX: G43.909 Migraine, unspecified, not intractable, without status migrainosus (principal); B34.9 Viral infection, unspecified; D72.829 Elevated white blood cell count, unspecified; R70.0 Elevated erythrocyte sedimentation rate; F32.9 Major depressive disorder, single episode, unspecified; F41.9 Anxiety disorder, unspecified
CPT/HCPCS: 36415; 70450; 80048; 83735; 85025; 85610; 85651; 85730; 96365; 96372; 96375; 99285; J1200; J1885; J2550; J3030; J3490; J7120

== ENCOUNTER 2018-07-13 18:39 | Emergency (ER) | payer OTHER ==
[~2018-07-13] VITALS: Ht 160 cm; Wt 99.8 kg
[~2018-07-13 18:39] MED LIST changes: +HYDR-79 PO; +ONDA8TAB12 PO; +SUMA100T3 PO
[2018-07-13 18:47] VITALS: BP 119/85
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
[2018-07-13] MEDS ORDERED: HYDROcodon/IBUPROFEN 7.5/200MG 1 TAB TABLET PO ONE (19:00)
[2018-07-13] MEDS ORDERED: HYDROcodon/IBUPROFEN 7.5/200MG 1 TAB TABLET ONE (19:08)
[2018-07-13] MEDS ORDERED: HYDR-79 PO (19:16)
--- NOTE | 2018-07-13 23:19 | RAD ---
Three-view right hand dated 07/13/2018. No comparison available. Clinical indication: Pain after injury. FINDINGS: 3 views right hand show normal bony alignment. No displaced fracture. No acute osseous or articular abnormality. IMPRESSION: No acute findings. Electronically signed by: Jesus Parker MD (07/13/2018 11:16 PM) [facility]
== END 2018-07-13 19:35 | disposition home or self-care (01) ==
LOC: ER 18:39
DX: S63.690A Other sprain of right index finger, initial encounter (principal); F41.9 Anxiety disorder, unspecified; F32.9 Major depressive disorder, single episode, unspecified; G43.909 Migraine, unspecified, not intractable, without status migrainosus; W50.2XXA Accidental twist by another person, initial encounter; Y93.89 Activity, other specified; Y92.89 Other specified places as the place of occurrence of the external cause; Y99.0 Civilian activity done for income or pay
CPT/HCPCS: 73130; 99284

== ENCOUNTER → 2020-05-24 | Outpatient (CLI) | payer OTHER ==
[~2020-05-24] MED LIST changes: +HYDR-1179 PO; +HYDR-2155 PO; -HYDR-2758 PO; -HYDR-79 PO
--- NOTE | 2020-05-24 12:17 | RAD ---
FOOT RIGHT 3V, ANKLE RIGHT 3V 05/24/2020 11:25 AM INDICATION: Injury one month ago from fall. Persistent right ankle pain COMPARISON: None available. TECHNIQUE: 3 views of the right foot and 3 views of the right ankle are provided. FINDINGS/ IMPRESSION: 1. Tibial plafond and talar dome are intact. Ankle mortise is congruent. No periosteal reaction or callus formation. Joint spaces are maintained. Bone mineralization is within normal limits. 2. No acute fracture involving the tarsals, metatarsals and phalanges. Joint spaces are maintained. Bone mineralization is within normal limits. No significant soft tissue swelling. No radiopaque foreign density. There is an os navicularis. Electronically signed by: Deidra Quiros MD (05/24/2020 12:14 PM) [id number]
--- NOTE | 2020-05-24 16:16 | RAD ---
Three-view study lumbar spine Clinical indications: Injury one month ago from fall. Persistent low back pain. FINDINGS: No compression fracture or discitis or lytic process or anterolisthesis is seen. The transverse processes appear intact. Mild degenerative endplate spurring is seen at L1-2 without significant disc space narrowing. IMPRESSION: No acute compression fracture. Electronically signed by: Barber Noel MD (05/24/2020 4:13 PM) [id number]
== END | disposition home or self-care (01) ==
LOC: DXRAD 11:15
PROVIDERS: ATTEND Physician Assistant
DX: M47.26 Other spondylosis with radiculopathy, lumbar region (principal); M46.06 Spinal enthesopathy, lumbar region; M79.671 Pain in right foot; M25.571 Pain in right ankle and joints of right foot
CPT/HCPCS: 72100; 73610; 73630

== ENCOUNTER 2021-01-15 16:55 | Emergency (ER) | payer OTHER ==
[~2021-01-15] VITALS: Ht 160 cm; Wt 89.0 kg
[2021-01-15 19:06] LABS: BGAS PH 7.4 (7.35-7.45)
[2021-01-15 19:13] LABS: BASO % 1 % (0-3); EOS # 0.2 x10^3/uL (0.0-0.7); EOS % 4 % (0-3); HEMATOCRIT 38.1 % (36.0-47.0); HEMOGLOBIN 13.1 g/dL (12.0-15.5); LYMPH # 2.8 x10^3/uL (1.0-4.8); LYMPH % 47 % (24-48); MEAN CORPUSCULAR HEMOGLOBIN 33 pg (25-35); MEAN CORPUSCULAR HGB CONC 34 g/dL (31-37); MEAN CORPUSCULAR VOLUME 95 fL (79-100); MONO # 0.5 x10^3/uL (0.0-1.1); MONO % 9 % (0-9); NEUT # 2.4 x10^3uL (1.8-7.7); NEUT % 40 % (31-73); PLATELET COUNT 250 x10^3/uL (140-400); RED CELL DISTRIBUTION WIDTH 12.9 % (11.5-14.5)
[2021-01-15 19:28] LABS: CALCIUM 8.8 mg/dL (8.5-10.1); CREATININE 0.9 mg/dL (0.6-1.0); GFR 71.3
[2021-01-15 19:42] LABS: BILIRUBIN,URINE NEG (NEG); CLARITY,URINE CLEAR; COLOR,URINE YELLOW; GLUCOSE,URINE NEG (NEG)
[2021-01-15 19:43] LABS: BACTERIA,URINE FEW /HPF (0-FEW); NITRITE,URINE NEG (NEG); RBC,URINE 0 /HPF (0-2); SQUAMOUS EPITHELIAL CELL,UR FEW /LPF; UROBILINOGEN,URINE 0.2 mg/dL (0.2 mg/dL)
--- NOTE | 2021-01-15 20:25 | PHYS DOC ---
Past History Past Medical History: Depression, High Cholesterol, Other Additional Past Medical Histor: gluten intolerance, gastroparesis, Past Surgical History: Appendectomy Alcohol Use: None Drug Use: None Adult General Chief Complaint Chief Complaint: DIZZY/LIGHT HEADED HPI HPI Patient is an otherwise healthy 35-year-old female who presents from work for concerns of carbon monoxide poisoning. States that they were at work at about 4 PM and all of the alarm started going off. States that her and her coworkers all had headaches. States that her headache was about 3 out of 10, whole head in nature. Denies any changes in vision, palpitations, chest pain, shortness of breath, abdominal pain, nausea, vomiting. Denies any numbness/weakness/tingling. States she is able to sit, stand and walk without issue but was just concerned that she had carbon monoxide poisoning. States that the facilities at work told everybody that it was broken machinery and not to call the fire department. States that while she is been here in the emergency department she has had no symptoms and feels well. States she is ready to go home. Review of Systems Review of Systems Review of systems otherwise unremarkable except noted in HPI Allergies Allergies Allergies Coded Allergies Type Severity Reaction Last Updated Verified No Known Drug Allergies 12/26/15 No Physical Exam Physical Exam Constitutional: Well developed, well nourished, no acute distress, non-toxic appearance. [] HENT: Normocephalic, atraumatic, bilateral external ears normal, oropharynx moist, no oral exudates, nose normal. [] Eyes: PERRLA, EOMI, conjunctiva normal, no discharge. [] Neck: Normal range of motion, no tenderness, supple, no stridor. [] Cardiovascular:Heart rate regular rhythm, no murmur [] Lungs & Thorax: Bilateral breath sounds clear to auscultation [] Skin: Warm, dry, no erythema, no rash. [] Extremities: ROM intact, no edema. [] Neurologic: Alert and oriented X 3, normal motor function, normal sensory function, able to sit, stand and walk without issue, no focal deficits noted. [] Psychologic: Affect normal, judgement normal, mood normal. [] Current Patient Data Vital Signs Vital Signs Date Time Temp Pulse Resp B/P (MAP) Pulse Ox O2 Delivery O2 Flow Rate FiO2 01/15/21 17:24 98.9 68 18 138/74 (95) 97 Room Air Lab Results Laboratory Tests Test 01/15/21 18:47 01/15/21 18:54 01/15/21 18:56 Urine Collection Type Unknown Urine Color Yellow Urine Clarity Clear Urine pH 5.5 Urine Specific [place] 1.015 Urine Protein Neg (NEG-TRACE) Urine Glucose (UA) Neg mg/dL (NEG) Urine Ketones (Stick) Trace mg/dL (NEG) Urine Blood Neg (NEG) Urine Nitrite Neg (NEG) Urine Bilirubin Neg (NEG) Urine Urobilinogen Dipstick 0.2 mg/dL (0.2 mg/dL) Urine Leukocyte Esterase Neg (NEG) Urine RBC 0 /HPF (0-2) Urine WBC 1-4 /HPF (0-4) Urine Squamous Epithelial Cells Few /LPF Urine Bacteria Few /HPF (0-FEW) White Blood Count 6.0 x10^3/uL (4.0-11.0) Red Blood Count 4.00 x10^6/uL (3.50-5.40) Hemoglobin 13.1 g/dL (12.0-15.5) Hematocrit 38.1 % (36.0-47.0) Mean Corpuscular Volume 95 fL (79-100) Mean Corpuscular Hemoglobin 33 pg (25-35) Mean Corpuscular Hemoglobin Concent 34 g/dL (31-37) Red Cell Distribution Width 12.9 % (11.5-14.5) Platelet Count 250 x10^3/uL (140-400) Neutrophils (%) (Auto) 40 % (31-73) Lymphocytes (%) (Auto) 47 % (24-48) Monocytes (%) (Auto) 9 % (0-9) Eosinophils (%) (Auto) 4 % (0-3) H Basophils (%) (Auto) 1 % (0-3) Neutrophils # (Auto) 2.4 x10^3uL (1.8-7.7) Lymphocytes # (Auto) 2.8 x10^3/uL (1.0-4.8) Monocytes # (Auto) 0.5 x10^3/uL (0.0-1.1) Eosinophils # (Auto) 0.2 x10^3/uL (0.0-0.7) Basophils # (Auto) 0.0 x10^3/uL (0.0-0.2) Sodium Level 144 mmol/L (136-145) Potassium Level 4.0 mmol/L (3.5-5.1) Chloride Level 108 mmol/L (98-107) H Carbon Dioxide Level 28 mmol/L (21-32) Anion Gap 8 (6-14) Blood Urea Nitrogen 18 mg/dL (7-20) Creatinine 0.9 mg/dL (0.6-1.0) Estimated GFR (Cockcroft-Gault) 71.3 Glucose Level 94 mg/dL (70-99) Calcium Level 8.8 mg/dL (8.5-10.1) Troponin I Quantitative < 0.017 ng/mL (0-0.055) POC Urine HCG, Qualitative hcg negative (Negative) Blood pH 7.40 (7.35-7.45) Blood Gas PCO2 40 mmHg (35-45) Blood Gas PO2 79 mmHg (80-100) L Blood Gas HCO3 24 mmol/L (22-26) Arterial Bld O2 Saturation (Calc) 96 % (92-99) FiO2 21 % EKG EKG [] Radiology/Procedures Radiology/Procedures [] Heart Score C/O Chest Pain: No Risk Factors: Risk Factors: DM, Current or recent (<one month) smoker, HTN, HLP, family history of CAD, obesity. Risk Scores: Risk Factors: DM, Current or recent (<one month) smoker, HTN, HLP, family history of CAD, obesity. Course & Med Decision Making Course & Med Decision Making Patient is a 35-year-old female who presents with a chief complaint of concern for carbon monoxide poisoning. Vital signs not concerning. Physical exam noted above. Patient alert and oriented no acute distress with no focal neurologic deficits. Laboratory analysis not concerning. ABG normal. Patient asymptomatic with normal vital signs. Discussed carbon monoxide poisoning signs and symptoms with family. Advised to call primary care physician in the morning to update. Gave return precautions to the ED. Patient grateful, verbalized understanding and agreed with plan of discharge. [] Dragon Disclaimer Dragon Disclaimer This electronic medical record was generated, in whole or in part, using a voice recognition dictation system. Departure Departure: Disposition: HOME / SELF CARE / HOMELESS Condition: GOOD Referrals: HORTENCIA BURNETTE MD (PCP) Patient Instructions: Carbon Monoxide Poisoning, [id number], Carbon Monoxide, Protecting Yourself Following an Emergency Additional Instructions: Please read all the attached information very carefully. Please call your primary care physician in the morning to update on your ED visit and set up a follow-up as needed. Please come back to the emergency department with new or concerning symptoms as discussed. MORIS RAYMUNDO MD January 15, 2021 20:25
[2021-01-15 20:59] VITALS: BP 135/69
--- NOTE | 2021-01-15 21:42 | EKG ---
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
== END 2021-01-15 20:59 | disposition home or self-care (01) ==
LOC: ER 16:55
DX: T58.91XA Toxic effect of carbon monoxide from unspecified source, accidental (unintentional), initial encounter (principal); R51.9 Headache, unspecified; F32.9 Major depressive disorder, single episode, unspecified; E78.00 Pure hypercholesterolemia, unspecified; Y92.89 Other specified places as the place of occurrence of the external cause
CPT/HCPCS: 36415; 36600; 80048; 81001; 81025; 82375; 82803; 84484; 85025; 93005; 99284

== ENCOUNTER 2021-01-23 19:00 | Emergency (ER) | payer OTHER ==
[~2021-01-23] VITALS: Ht 160 cm; Wt 88.8 kg
[2021-01-23] MEDS ORDERED: PROCHLORPERAZINE 10 MG/2 ML VIAL. IM ONE (19:15)
[2021-01-23] MEDS ORDERED: diphenhydrAMINE 50 MG/ML VIAL IV ONE (19:15)
[2021-01-23] MEDS ORDERED: KETOROLAC 15 MG/ML VIAL. IM ONE (19:15)
[2021-01-23] MEDS ORDERED: ONDA4TAB7 PO (19:30)
--- NOTE | 2021-01-23 19:31 | PHYS DOC ---
Past History Past Medical History: Depression, High Cholesterol, Other Additional Past Medical Histor: gluten intolerance, gastroparesis, (ROD CRISOSTOMO APRN) Past Surgical History: Appendectomy (ROD CRISOSTOMO APRN) Alcohol Use: None Drug Use: None (ROD CRISOSTOMO APRN) General Adult EDM: Chief Complaint: HEADACHE HPI: HPI: Patient is a 35-year-old female presents with migraine . Patient states that she recently was on antibiotics for a sinus infection and double ear infection and had not been taking her medications to prevent migraines. Patient denies taking anything for the headache prior to arrival. Patient states that she has light sensitivity, nausea, pain, which are all normal symptoms for her chronic migraines. She has a history of gastroparesis, migraines. (ROD CRISOSTOMO APRN) Review of Systems: Review of Systems: Constitutional: Denies fever or chills Eyes: Denies change in visual acuity, reports light sensitivity HENT: Denies nasal congestion or sore throat Respiratory: Denies cough or shortness of breath Cardiovascular: Denies chest pain or edema GI: Denies abdominal pain. Reports nausea. Denies vomiting, bloody stools or diarrhea : Denies dysuria Musculoskeletal: Denies back pain or joint pain Integument: Denies rash Neurologic: Reports headache. Denies focal weakness or sensory changes Endocrine: Denies polyuria or polydipsia Lymphatic: Denies swollen glands Psychiatric: Denies depression or anxiety (ROD CRISOSTOMO APRN) Allergies: Allergies: Allergies Coded Allergies Type Severity Reaction Last Updated Verified No Known Drug Allergies 12/26/15 No (ROD CRISOSTOMO APRN) Physical Exam: PE: Constitutional: Well developed, well nourished, no acute distress, non-toxic appearance. [] HENT: Normocephalic, atraumatic, bilateral external ears normal, oropharynx moist, no oral exudates, nose normal. [] Eyes: PERRLA, EOMI, conjunctiva normal, no discharge. [] Neck: Normal range of motion, no tenderness, supple, no stridor. [] Cardiovascular:Heart rate regular rhythm, no murmur [] Lungs & Thorax: Bilateral breath sounds clear to auscultation [] Abdomen: Bowel sounds normal, soft, no tenderness, no masses, no pulsatile masses. [] Skin: Warm, dry, no erythema, no rash. [] Back: No tenderness, no CVA tenderness. [] Extremities: No tenderness, no cyanosis, no clubbing, ROM intact, no edema. [] Neurologic: Alert and oriented X 3, normal motor function, normal sensory funct ion, no focal deficits noted. [] Psychologic: Affect normal, judgement normal, mood normal. [] (ROD CRISOSTOMO APRN) EKG: EKG: [] (ROD CRISOSTOMO APRN) Radiology/Procedures: Radiology/Procedures: [] (ROD CRISOSTOMO APRN) Heart Score: C/O Chest Pain: No Risk Factors: Risk Factors: DM, Current or recent (<one month) smoker, HTN, HLP, family history of CAD, obesity. Risk Scores: Score 0 - 3: 2.5% MACE over next 6 weeks - Discharge Home Score 4 - 6: 20.3% MACE over next 6 weeks - Admit for Clinical Observation Score 7 - 10: 72.7% MACE over next 6 weeks - Early Invasive Strategies (ROD CRISOSTOMO APRN) Course & Med Decision Making: Course & Med Decision Making Pertinent Labs and Imaging studies reviewed. (See chart for details) [] 35-year-old female presents with migraine since yesterday. Patient has a history of migraines and has not been taking her preventative medications due to recent illness. Patient is experiencing light sensitivity, nausea, headache. Patient states her symptoms are all the same that she normally has with her migraines. Denies thunderclap. Denies worst headache of her life. Patient given Toradol, Compazine, Benadryl for nausea and pain. Patient given prescription for Zofran. Advised patient to follow-up with her PCP. Patient is appreciative and okay with discharge plan. (ROD CRISOSTOMO APRN) Course & Med Decision Making Did not see or evaluate patient. Agree with M[employer] OPERATOR's work-up and disposition per note. (MORIS RAYMUNDO MD) Osman Disclaimer: Osman Disclaimer: This electronic medical record was generated, in whole or in part, using a voice recognition dictation system. (ROD CRISOSTOMO APRN) Departure Departure: Impression: Primary Impression: Migraine Qualified Codes: G43.009 - Migraine without aura, not intractable, without status migrainosus Referrals: HORTENCIA BURNETTE MD (PCP) Patient Instructions: Migraine Headache Additional Instructions: You are seen in the emergency room for migraine headache and nausea. I am prescribing you Zofran to help with nausea at home. Take ibuprofen or Tylenol at home for headache. Please follow-up with your PCP for further management. If you have worsening symptoms or concerns you can return to the emergency room. EMERGENCY DEPARTMENT GENERAL DISCHARGE INSTRUCTIONS Thank you for coming to [facility] (ED) today and trusting us with you care. We trust that you had a positivie experience in our Emergency Department. If you wish to speak to the department management, you may call the director at [phone]. YOUR FOLLOW UP INSTRUCTIONS ARE FOLLOWS: 1. Do you have a private Doctor? If you do not have a private doctor, please ask for a resource list of physicians or clinics that may be able to assist you with follow up care. 2. The Emergency Physician has interpreted your x-rays. The X-Ray specialist will also review them. If there is a change in the findings, you will be notified in 48 hours when at all possible. 3. A lab test or culture has been done, your results will be reviewed and you will be notified if you need a change in treatment. ADDITIONAL INSTRUCTIONS AND INFORMATION: 1. Your care today has been supervised by a physician who is specially trained in emergency care. Many problems require more than one evaluation for a complete diagnosis and treatment. We recommend that you schedule your follow up appointment as recommended to ensure complete treatment of you illness or injury. If you are unable to obtain follow up care and continue to have a problem, or if your condition worsens, we recommend that you return to the ED. 2. We are not able to safely determine your condition over the phone nor are we able to give sound medical advice over the phone. For these safety reasons, if you call for medical advice we will ask you to come to the ED for further evaluation. 3. If you have any questions regarding these discharge instructions please call the ED at [phone]. SAFETY INFORMATION: In the interest of safety, wellness, and injury prevention; we encourage you to wear your sealbelt, if you smoke; quite smoking, and we encourage family to use a protective helmet for bicycling and other sporting events that present an increased risk for head injury. IF YOUR SYMPTOMS WORSEN OR NEW SYMPTOMS DEVELOP, OR YOU HAVE CONCERNS ABOUT YOUR CONDITION; OR IF YOUR CONDITION WORSENS WHILE YOU ARE WAITING FOR YOUR FOLLOW UP APPOINTMENT; EITHER CONTACT YOUR PRIMARY CARE DOCTOR, THE PHYSICIAN WHOSE NAME AND NUMBER YOU WERE GIVEN, OR RETURN TO THE ED IMMEDIATELY. Scripts Ondansetron Hcl (ZOFRAN) 4 Mg Tablet 4 MG PO TID PRN PRN for NAUSEA for 10 Days, #30 TAB Prov: ROD CRISOSTOMO APRN 01/23/21 ROD CRISOSTOMO APRN January 23, 2021 19:31 MORIS RAYMUNDO MD January 23, 2021 22:26
[2021-01-23 20:17] VITALS: BP 122/68
== END 2021-01-23 20:17 | disposition home or self-care (01) ==
LOC: ER 19:00
DX: G43.909 Migraine, unspecified, not intractable, without status migrainosus (principal); F32.9 Major depressive disorder, single episode, unspecified; E78.5 Hyperlipidemia, unspecified
CPT/HCPCS: 96372; 96374; 99284; J0780; J1200; J1885

== ENCOUNTER 2021-05-15 17:28 | Emergency (ER) | payer OTHER ==
[~2021-05-15] VITALS: Ht 160 cm; Wt 88.8 kg
[~2021-05-15 17:28] MED LIST changes: +ONDA4TAB7 PO
[2021-05-15 17:41] VITALS: BP 122/68
--- NOTE | 2021-05-15 18:27 | PHYS DOC ---
Past History Past Medical History: Migraines Additional Past Medical Histor: gluten intolerance, gastroparesis, Past Surgical History: No Surgical History Alcohol Use: None Drug Use: None General Adult EDM: Chief Complaint: LOWER BACK PAIN OR INJURY HPI: HPI: 36-year-old female presents with low back pain. The patient has been having intermittent pain on and off for the last 3 weeks. She denies any inciting event, trauma, or overuse. She has no idea why this pain happens. She has been to the chiropractor a couple of times and it improves for a few days but then it has come back. She presents today because the pain is even starting to make her abdomen hurt and she does not know what else to do. She denies fever chills. She denies dysuria, urinary frequency, constipation, diarrhea. Review of Systems: Review of Systems: Constitutional: Denies fever or chills Eyes: Denies change in visual acuity HENT: Denies nasal congestion or sore throat Respiratory: Denies cough or shortness of breath Cardiovascular: Denies chest pain or edema GI: Denies abdominal pain, nausea, vomiting, bloody stools or diarrhea : Denies dysuria Musculoskeletal: Low back pain Integument: Denies rash Neurologic: Denies headache, focal weakness or sensory changes Endocrine: Denies polyuria or polydipsia Lymphatic: Denies swollen glands Psychiatric: Denies depression or anxiety Allergies: Allergies: Allergies Coded Allergies Type Severity Reaction Last Updated Verified No Known Drug Allergies 12/26/15 No Physical Exam: PE: Constitutional: Well developed, well nourished, no acute distress, in pain. [] HENT: Normocephalic, atraumatic, bilateral external ears normal, oropharynx moist, no oral exudates, nose normal. [] Eyes: PERRLA, EOMI, conjunctiva normal, no discharge. [] Neck: Normal range of motion, no tenderness, supple, no stridor. [] Cardiovascular:Heart rate regular rhythm, no murmur [] Lungs & Thorax: Bilateral breath sounds clear to auscultation [] Abdomen: Bowel sounds normal, soft, no tenderness, no masses, no pulsatile masses. [] Skin: Warm, dry, no erythema, no rash. [] Back: Tenderness over the right sacroiliac joint with surrounding muscle spasm. [] Extremities: No tenderness, no cyanosis, no clubbing, ROM intact, no edema. [] Neurologic: Alert and oriented X 3, normal motor function, normal sensory function, no focal deficits noted. [] Psychologic: Affect normal, judgement normal, mood normal. [] Current Patient Data: Vital Signs: Vital Signs Date Time Temp Pulse Resp B/P (MAP) Pulse Ox O2 Delivery O2 Flow Rate FiO2 05/15/21 17:41 98.3 84 16 122/68 (86) 98 EKG: EKG: [] Radiology/Procedures: Radiology/Procedures: [] Heart Score: C/O Chest Pain: N/A Risk Factors: Risk Factors: DM, Current or recent (<one month) smoker, HTN, HLP, family history of CAD, obesity. Risk Scores: Score 0 - 3: 2.5% MACE over next 6 weeks - Discharge Home Score 4 - 6: 20.3% MACE over next 6 weeks - Admit for Clinical Observation Score 7 - 10: 72.7% MACE over next 6 weeks - Early Invasive Strategies Course & Med Decision Making: Course & Med Decision Making Pertinent Labs and Imaging studies reviewed. (See chart for details) Based on the history and physical exam, the patient appears to have right sacro iliac joint dysfunction. I will treat her with steroids and muscle relaxer. We will give the first dose in the emergency room. I have educated the patient on proper mechanics and her treatment regimen. She states verbal understanding. She is stable for discharge at this time. [] Dasiaon Disclaimer: Dragyue Disclaimer: This electronic medical record was generated, in whole or in part, using a voice recognition dictation system. Departure Departure: Impression: Primary Impression: Inflammation of right sacroiliac joint Disposition: HOME / SELF CARE / HOMELESS Condition: STABLE Referrals: HORTENCIA BURNETTE MD (PCP) Patient Instructions: Sacroiliac Joint Dysfunction HANANE PEACOCK DO May 15, 2021 18:27
[2021-05-15] MEDS ORDERED: CYCL-331 PO (18:29)
[2021-05-15] MEDS ORDERED: PRED50TA PO (18:29)
[2021-05-15] MEDS ORDERED: CYCLOBENZAPRINE 10 MG TABLET. PO ONE (18:30)
[2021-05-15] MEDS ORDERED: predniSONE 20 MG TABLET PO ONE (18:30)
== END 2021-05-15 18:48 | disposition home or self-care (01) ==
LOC: ER 17:28
DX: M46.98 Unspecified inflammatory spondylopathy, sacral and sacrococcygeal region (principal)
CPT/HCPCS: 99283; J7512

== ENCOUNTER 2021-12-01 08:55 | Emergency (ER) | payer OTHER ==
[~2021-12-01] VITALS: Ht 160 cm; Wt 88.8 kg
[~2021-12-01 08:55] MED LIST changes: +CYCL10TA19 PO; +PRED50TA PO
--- NOTE | 2021-12-01 09:48 | PHYS DOC ---
Past History Past Medical History: Migraines Additional Past Medical Histor: gluten intolerance, gastroparesis, Past Surgical History: No Surgical History Alcohol Use: None Drug Use: None General Adult HPI: HPI: Patient is a 36-year-old female who presents with depression and suicidal thoughts. She has recently been prescribed BuSpar, she thought she had been doing relatively well until the last few days, and this morning she is experiencing thoughts of wanting to kill herself. She reports that she is thinking about getting a gun and shooting herself. She does not own a gun but has access to one. She reports that she has previously attempted suicide by cutting her wrists. She has not ever been previously hospitalized for suicidal ideation or suicide attempt. She denies any physical pain or discomfort. She has not made any attempt to harm herself today. She has not overdosed or ingested any toxins. She denies use of alcohol or illicit drugs. She denies homicidal ideation. She denies any precipitating factors and her sadness and depression and suicidal thoughts today. Review of Systems: Review of Systems: Constitutional: Denies fever or chills HENT: Denies nasal congestion or sore throat Respiratory: Denies cough or shortness of breath Cardiovascular: Denies chest pain GI: Denies abdominal pain, nausea, vomiting Musculoskeletal: Denies back pain or joint pain Integument: Denies rash, lacerations or wounds Neurologic: Denies headache, focal weakness or sensory changes Psychiatric: Depression, anxiety, suicidal thoughts Allergies: Allergies: Allergies Coded Allergies Type Severity Reaction Last Updated Verified No Known Drug Allergies 12/26/15 No Physical Exam: PE: Constitutional: Well developed, well nourished, no acute distress, non-toxic a ppearance. Tearful, crying. HENT: Normocephalic, atraumatic Eyes: Conjunctiva normal, no discharge. [] Neck: Normal range of motion, no tenderness, supple, no stridor. Trachea midline. No thyromegaly. Cardiovascular:Heart rate regular rhythm, warm and well-perfused. Lungs & Thorax: Bilateral breath sounds clear to auscultation [] Abdomen: Bowel sounds normal, soft, no tenderness, no masses, no pulsatile masses. [] Skin: Warm, dry, no erythema, no rash. No open wounds or lacerations. Back: No tenderness, no CVA tenderness. [] Extremities: No tenderness, no cyanosis, no clubbing, ROM intact, no edema. No limb deformity. Neurologic: Alert and oriented X 3, normal motor function, normal sensory function, no focal deficits noted. [] Psychologic: Tearful, depressed affect, admits to suicidal ideation. Cooperative and pleasant. EKG: EKG: [] Radiology/Procedures: Radiology/Procedures: [] Heart Score: C/O Chest Pain: No Risk Factors: Risk Factors: DM, Current or recent (<one month) smoker, HTN, HLP, family history of CAD, obesity. Risk Scores: Score 0 - 3: 2.5% MACE over next 6 weeks - Discharge Home Score 4 - 6: 20.3% MACE over next 6 weeks - Admit for Clinical Observation Score 7 - 10: 72.7% MACE over next 6 weeks - Early Invasive Strategies Course & Med Decision Making: Course & Med Decision Making Pertinent Labs and Imaging studies reviewed. (See chart for details) The patient was seen by the PAT team. Inpatient psychiatric hospitalization is recommended. The patient is amenable to this, she is voluntary. [facility], she is accepted for admission by Dr Todd. She is comfort able with this plan. Osman Disclaimer: Osman Disclaimer: This electronic medical record was generated, in whole or in part, using a voice recognition dictation system. Departure Departure: Impression: Primary Impression: Suicidal thoughts Disposition: 02 [facility] ([facility]) Condition: STABLE Referrals: HORTENCIA BURNETTE MD (PCP) KAYODE MARSHALL DO Dec 01, 2021 09:48
[2021-12-01 10:00] VITALS: BP 122/68
[2021-12-01 11:03] LABS: CALCIUM 9.2 mg/dL (8.5-10.1); CREATININE 0.9 mg/dL (0.6-1.0); GFR 70.8; POTASSIUM 3.4 mmol/L (3.5-5.1)
[2021-12-01 11:11] LABS: BASO % 0 % (0-3); EOS % 0 % (0-3); HEMATOCRIT 47.5 % (36.0-47.0); HEMOGLOBIN 15.8 g/dL (12.0-15.5); LYMPH # 1.8 x10^3/uL (1.0-4.8); LYMPH % 15 % (24-48); MEAN CORPUSCULAR HEMOGLOBIN 32 pg (25-35); MEAN CORPUSCULAR HGB CONC 33 g/dL (31-37); MEAN CORPUSCULAR VOLUME 95 fL (79-100); MONO # 0.5 x10^3/uL (0.0-1.1); MONO % 5 % (0-9); NEUT # 9.5 x10^3uL (1.8-7.7); NEUT % 80 % (31-73); PLATELET COUNT 282 x10^3/uL (140-400); RED BLOOD COUNT 5.01 x10^6/uL (3.50-5.40); RED CELL DISTRIBUTION WIDTH 13.2 % (11.5-14.5); WHITE BLOOD COUNT 11.9 x10^3/uL (4.0-11.0)
[2021-12-01 11:20] LABS: ACETAMIN < 2.0 mcg/mL (10-30); ETHANOL < 10 mg/dL (0-10); SALIC 1.2 mg/dL (2.8-20.0)
[2021-12-01 11:21] LABS: BARBITURATES NEG (NEG); BENZODIAZEPINES NEG (NEG); CANNABINOIDS POS (NEG); COCAINE NEG (NEG); METHADONE NEG (NEG); OPIATES NEG (NEG); PHENCYCLIDINE NEG (NEG)
[2021-12-01 11:22] LABS: AMPHETAMINE/METHAMPHETAMINE NEG (NEG)
[2021-12-01 11:39] LABS: AMORPHOUS SEDIMENT,UR PRESENT /HPF; BACTERIA,URINE FEW /HPF (0-FEW); CLARITY,URINE CLEAR; COLOR,URINE YELLOW; GLUCOSE,URINE NEG (NEG); NITRITE,URINE NEG (NEG); SQUAMOUS EPITHELIAL CELL,UR MANY /LPF; UROBILINOGEN,URINE 0.2 mg/dL (0.2 mg/dL)
[2021-12-01 11:41] LABS: U PREG PATIENT NEGATIVE (NEG)
== END 2021-12-01 17:26 | disposition short-term general hospital (02) ==
LOC: ER 08:55
DX: U07.1 COVID-19 (principal); R45.851 Suicidal ideations; F32.9 Major depressive disorder, single episode, unspecified; G43.909 Migraine, unspecified, not intractable, without status migrainosus
CPT/HCPCS: 80048; 80307; 80329; 81001; 81025; 85025; 87086; 87426; 99285; C9803; G0480; U0003

== ENCOUNTER 2022-01-02 12:17 | Emergency (ER) | payer OTHER ==
[~2022-01-02] VITALS: Ht 160 cm; Wt 88.2 kg
[2022-01-02 13:32] LABS: CLARITY,URINE CLEAR; COLOR,URINE YELLOW; GLUCOSE,URINE NEG (NEG); NITRITE,URINE NEG (NEG); RBC,URINE 0 /HPF (0-2); UROBILINOGEN,URINE 0.2 mg/dL (0.2 mg/dL); WBC,URINE OCC /HPF (0-4)
[2022-01-02 13:33] LABS: BACTERIA,URINE FEW /HPF (0-FEW); SQUAMOUS EPITHELIAL CELL,UR FEW /LPF
--- NOTE | 2022-01-02 14:19 | RAD ---
First trimester OB ultrasound dated 01/02/2022. CLINICAL HISTORY: Reason: LLQ abd pain, LMP in September / . Instructions: / History: . Pain COMPARISON: None available. TECHNIQUE: Transabdominal ultrasound of the uterus was performed. FINDINGS: Gestational sac and pole within the endometrial canal. The crown-rump length measures 0.87 cm c orrelating with a 6 week 6 day gestation. heart rate 147 BPM. Amniotic fluid volume appears luz maria ropriate. No subchorionic collection. Placenta not well visualized. Right ovary measures 2.8 x 1.9 x 1.8 cm. Left ovary measures 2.4 x 2.1 x 1.9 cm. No adnexal mass or f ree fluid. IMPRESSION: 1. Single viable intrauterine gestation with estimated sonographic gestational age of 6 weeks 6 days. No acute findings. Electronically signed by: Jesus Parker MD (01/02/2022 2:17 PM) GENESIS
--- NOTE | 2022-01-02 15:07 | PHYS DOC ---
Past History Past Medical History: Migraines Additional Past Medical Histor: gluten intolerance, gastroparesis, Past Surgical History: Appendectomy Alcohol Use: None Drug Use: None General Adult EDM: Chief Complaint: GROIN PAIN HPI: HPI: Patient is a 36-year-old female who presents emergency department with c omplaints of intermittent crampiness in the lower left quadrant for the last 2 to 3 days. She denies any nausea, vomiting, diarrhea, fever, cough, shortness of breath, chest pain, body aches, fatigue, or weakness. Patient states she has had some increased urinary frequency and this morning when she went to the bathroom it did burn after she went to the bathroom. Patient denies any foul- smelling urine, hematuria, or difficulty voiding. She also denies any back pain. Patient is unable to recall when her last menstrual cycle was, she states that this is not abnormal for her as she has irregular menstrual cycles. The patient currently denies any pain. Review of Systems: Review of Systems: Complete ROS is negative unless otherwise noted in the HPI. Allergies: Allergies: Allergies Coded Allergies Type Severity Reaction Last Updated Verified No Known Drug Allergies 12/26/15 No Physical Exam: PE: See above Constitutional: Well developed, well nourished, no acute distress, non-toxic a ppearance. [] HENT: Normocephalic, atraumatic, bilateral external ears normal, oropharynx moist, no oral exudates, nose normal. [] Eyes: PERRLA, EOMI, conjunctiva normal, no discharge. [] Neck: Normal range of motion, no tenderness, supple, no stridor. [] Cardiovascular:Heart rate regular rhythm, no murmur [] Lungs & Thorax: Bilateral breath sounds clear to auscultation [] Abdomen: Bowel sounds normal, soft, no tenderness, no masses, no pulsatile masses. [] Skin: Warm, dry, no erythema, no rash. [] Back: No tenderness, no CVA tenderness. [] Extremities: No tenderness, no cyanosis, no clubbing, ROM intact, no edema. [] Neurologic: Alert and oriented X 3, normal motor function, normal sensory function, no focal deficits noted. [] Psychologic: Affect normal, judgement normal, mood normal. [] Current Patient Data: Labs: Laboratory Tests Test 01/02/22 12:01 01/02/22 12:45 01/02/22 13:27 POC Urine HCG, Qualitative hcg positive (Negative) Urine Collection Type Unknown Urine Color Yellow Urine Clarity Clear Urine pH 6.5 Urine Specific [place] 1.020 Urine Protein Neg (NEG-TRACE) Urine Glucose (UA) Neg mg/dL (NEG) Urine Ketones (Stick) Neg mg/dL (NEG) Urine Blood Neg (NEG) Urine Nitrite Neg (NEG) Urine Bilirubin Neg (NEG) Urine Urobilinogen Dipstick 0.2 mg/dL (0.2 mg/dL) Urine Leukocyte Esterase Neg (NEG) Urine RBC 0 /HPF (0-2) Urine WBC Occ /HPF (0-4) Urine Squamous Epithelial Cells Few /LPF Urine Bacteria Few /HPF (0-FEW) Urine Mucus Slight /LPF Maternal Serum HCG Beta Subunit 05989 mIU/mL (0-6) H Vital Signs: Vital Signs Date Time Temp Pulse Resp B/P (MAP) Pulse Ox O2 Delivery O2 Flow Rate FiO2 01/02/22 12:30 98.1 77 20 117/68 (84) 99 Room Air EKG: EKG: [] Radiology/Procedures: Radiology/Procedures: [] Heart Score: C/O Chest Pain: No Course & Med Decision Making: Course & Med Decision Making Pertinent Labs and Imaging studies reviewed. (See chart for details) 36-year-old female presents emergency department for evaluation of lower left quadrant cramping for 2 to 3 days. Urinalysis was not concerning for any infection patient's urine test was positive. Beta-hCG was drawn and an ultrasound was performed as the patient was unaware when her last menstrual cycle was. hCG level was 42, 183. Ultrasound revealed intrauterine measuring 6 weeks, 6 days, with a heart rate of 147. I advised the patient that based on her measurements today her estimated date of confinement is 08/21/2022. Recommended that she take a daily vitamin with DHA and she follow-up with an SCHOOL PHOTOGRAPH EDITOR for further management of her . Return to the ER if symptoms worsen or fever develops. Patient verbalized an understanding of home care, medications, follow-up, and return to ED instructions and was in agreement with the plan of care. Dragon Disclaimer: Dragon Disclaimer: This electronic medical record was generated, in whole or in part, using a voice recognition dictation system. Departure Departure: Impression: Primary Impression: Abdominal pain during in first trimester Disposition: HOME / SELF CARE / HOMELESS Condition: STABLE Referrals: HORTENCIA BURNETTE MD (PCP) Patient Instructions: Abdominal Pain During , [id number] Additional Instructions: Based on your ultrasound today you are approximately 6 weeks, 6 days with estimated due date of August 21, 2022. I recommend that you take a daily vitamin with DHA. Follow-up with an SCHOOL PHOTOGRAPH EDITOR of your choice, return to the ER if symptoms worsen or fever develops. DEON SINGH APRN January 02, 2022 15:06
[2022-01-02 15:10] VITALS: BP 121/81
== END 2022-01-02 15:10 | disposition home or self-care (01) ==
LOC: ER 12:17
DX: O26.891 Other specified pregnancy related conditions, first trimester (principal); R10.32 Left lower quadrant pain; G43.909 Migraine, unspecified, not intractable, without status migrainosus; Z3A.01 Less than 8 weeks gestation of pregnancy
CPT/HCPCS: 36415; 76801; 81001; 81025; 84702; 99284